=== PATIENT | female | born 1935 | race Caucasian/White ===

== ENCOUNTER 2016-12-10 07:13 | Day surgery (SDC) | payer MEDICARE, OTHER ==
[2016-12-10] MEDS ORDERED: Lactated Ringers 1,000 ML IV SCH (07:15)
[2016-12-10] MEDS ORDERED: Ondansetron 4 MG/2 ML SDV IVPUSH ONE (08:30)
[2016-12-10] MEDS ORDERED: Citric Acid/Sodium Citrate Solution 30 ML Cup PO ONE (08:30)
[2016-12-10] MEDS ORDERED: Dexamethasone 4 MG/ML 5 ML MDV IVPUSH ONE (08:30)
[2016-12-10] MEDS ORDERED: Succinylcholine 200 MG/10 ML MDV IV ONE (08:30)
[2016-12-10] MEDS ORDERED: Rocuronium 50 MG/5 ML Vial IV ONE (08:30)
[2016-12-10] MEDS ORDERED: ePHEDrine 50 MG/ML SDV IV ONE (08:30)
[2016-12-10] MEDS ORDERED: fentaNYL 100 MCG/2 ML SDV IV ONE (08:30)
[2016-12-10] MEDS ORDERED: Midazolam 1 MG/ML 2 ML SDV IV ONE (08:30)
[2016-12-10] MEDS ORDERED: Propofol 200 MG/20 ML SDV IV ONE (08:30)
[2016-12-10] MEDS ORDERED: Bupivacaine 0.5% 30 ML SDV INFILT ONE (08:51)
[2016-12-10] MEDS ORDERED: Lidocaine 1% with EPINEPHrine 1:100,000 20 ML MDV INFILT ONE (08:51)
--- NOTE | 2016-12-10 09:23 | PCM.OPNOTE ---
- General Post-Op/Procedure Note Date of Surgery/Procedure: 12/10/16 Operative Procedure(s): left inguinal hernia repair Findings: large direct hernia as well as small hernia sac along the round ligament. very atrophic inguinal ligament. Pre Op Diagnosis: lih Post-Op Diagnosis: Same Anesthesia Technique: General ET Tube, Local (8 ml 1%lido with epi/0.5% buvipicaine) Primary Surgeon: Yan More Anesthesia Provider: Digna Granger Pathology: sac EBL in mLs: 2 Complications: None Condition: Good Free Text/Narrative:: see dictation
[2016-12-10] MEDS ORDERED: Acetaminophen/HYDROcodone 325-5 MG Tab PO PRN (09:34)
--- NOTE | 2016-12-10 11:04 | OR ---
DATE OF OPERATION: 12/10/2016 SURGEON: Yan More MD PROCEDURE PERFORMED: Left inguinal hernia repair. PREOPERATIVE DIAGNOSIS: Left inguinal hernia. POSTOPERATIVE DIAGNOSIS: Left inguinal hernia with large direct hernia. INDICATIONS FOR PROCEDURE: This is an 81-year-old white female, who was referred with a history of inguinal hernia. It is reducible, was quite tender, and she was offered and accepted repair. INTRAOPERATIVE FINDINGS: As follows, a large direct hernia, a very attenuated inguinal ligament was found, as well as a small hernia sac over the round ligament as well. DESCRIPTION OF PROCEDURE: After an excellent general anesthetic was administered, the patient was prepped and draped in usual sterile manner. 8 mL of 1:1 mixture of 1% lidocaine with epinephrine 0.5% bupivacaine was used to infiltrate our incision site which was approximately jail between the anterior superior iliac spine and the symphysis pubis at intercept point. Underlying subcu fat was divided using electrocautery. The aponeurosis of the external oblique was exposed. A ally was made through aponeurosis after injecting more local. Careful blunt dissection revealed the round ligament which was very attenuated, and hernia defect was noted as well as a small sac and a cord lipoma along the round ligament. This was opened, and after assuring no intraabdominal contents twisted on itself, the hernia sac was ligated and transected and passed off the field. It was very apparent that we would not be able to affect a mesh repair given the appearance of the inguinal ligament using an open technique. Her transversalis fascia was very lax, however, and amended itself quite nicely to a Tamera repair. Using interrupted 0 Ethibond, the transversalis fascia was tacked to Tacho's ligament until we came along the inguinal vessels wherein a transition stitch was made tacking the fascia in the area of the inguinal ligament. The aponeurosis was then closed with a running 3- 0 Vicryl. Hilton's fascia and the skin was closed with a running 3-0 Vicryl as well Steri-Strips were applied. Needle, sponge, and instrument counts were reported as correct. The patient was taken to recovery room in good condition having tolerated procedure well. /[id number] /MODL
[2016-12-10 11:52] VITALS: BP 132/74
== END 2016-12-10 11:39 | disposition home or self-care (01) ==
LOC: FB.SDS 07:13
PROVIDERS: ATTEND Surgery
DX: K40.90 Unilateral inguinal hernia, without obstruction or gangrene, not specified as recurrent (principal); I10 Essential (primary) hypertension; E03.9 Hypothyroidism, unspecified; K21.9 Gastro-esophageal reflux disease without esophagitis; Z79.899 Other long term (current) drug therapy; Z88.0 Allergy status to penicillin; Z88.1 Allergy status to other antibiotic agents; Z88.2 Allergy status to sulfonamides; Z88.8 Allergy status to other drugs, medicaments and biological substances; Z98.890 Other specified postprocedural states; Z96.651 Presence of right artificial knee joint; Z90.710 Acquired absence of both cervix and uterus
CPT/HCPCS: 00830; 49505; A9270; J7050; J7120; 88300; J0330; J1100; J2250; J2405; J2704; J3010; S0077